=== PATIENT | female | born 1955 | race Caucasian/White ===

== ENCOUNTER 2016-11-01 02:09 | Emergency (ER) | payer OTHER ==
[~2016-11-01] VITALS: Ht 165.1 cm; Wt 80.9 kg
[2016-11-01 02:12] VITALS: BP 130/89; RESP 18; O2SAT 98
--- NOTE | 2016-11-01 02:34 | ED.REPORT ---
HPI-Ear Pain/Problem/FB Date of Service Nov 01, 2016 ED Provider: Arsenio Jim DO Patient is a 60 year old female with diabetes mellitus who presents to the ED with left sided ear pain that began this evening. Her pain is so severe that she was unable to sleep tonight. The patient states that she was recently sick 2 days ago, with vomiting and diarrhea. Her symptoms resolved 2 days ago. She also reports a persistent cough and nasal drip. Patient denies a fever. Nursing Notes Stated Complaint: LEFT EAR PAIN, POSSIBLE FLU Chief Complaint: ENT & Mouth Nursing Notes Reviewed: Yes Allergies: Coded Allergies: No Known Allergies (Unverified , 11/01/16) General Time Seen by MD: 02:33 Chief Complaint Ear problem left Hx Obtained From: Patient Arrived By: Walk-in Onset Occurred: 1 - 4 hours ago Symptom Duration: Since onset Quality: Painful Severity: Current: Moderate Severity: Maximum: Severe Recent Healthcare: No recent doctor visit, No recent hospitalization Similar Sx Previous: No Past Medical History Past Medical History Reports: Diabetes mellitus Reports: Migraines Past Surgical History none reported Smoking History Unknown if Ever Smoker Social History Other Social History: Good social support, , Local resident Ambulatory Status Independent Review of Systems Constitutional: Denies: Chills, Fever Ears / Nose / Throat: Reports: Earache left, Nasal congestion Complete sys rev & neg: except as marked. Additional Review of Systems Respiratory: Reports: Non-productive cough, Denies: Shortness of breath GI: Denies: Diarrhea (resolved), Vomiting (resolved) Physical Exam Initial Vital Signs Vital Signs (First) Date Time Temp Pulse Resp B/P Pulse Ox O2 Delivery O2 Flow Rate FiO2 11/01/16 02:12 36.3 86 18 130/89 98 Room Air Initial VS: Reviewed Head / Eyes: Atraumatic, Normocephalic, PERRL Neck: Supple, Full range of motion Extremities: Vascular intact, Neuro intact Skin: Warm, Dry, No cyanosis Neurologic: Alert, Oriented, Nonfocal Psychiatric: Mood/affect normal, Behavior normal, Normal thought content General/Constitutional: Awake, Alert, No acute distress ENT: Airway patent Left Ear / Mastoid: Positive: Fluid behind TM purulent (and green), Tympanic membrane bulging, Tympanic membrane red Respiratory / Chest: No respiratory distress, No stridor Cardiovascular: Heart rate NL, Cap refill not delayed Re-Eval/Medical Decision Source of Hx: Old records Re-Evaluation/Progress : Time of Eval: 02:45 Patient Status: Condition improved Re-Evaluation/Progress Note: Patient's ear infection will be treated with antibiotics. Patient understands and agrees with the plan to be discharged home. Discharge instructions and follow-up discussed. All questions were addressed. Return to the ED warnings given. Counseled Regarding: Diagnosis, Need for follow-up, When/why to return to ED Discharge & Departure Primary Impression: Otitis media Otitis media type: suppurative Laterality: left Chronicity: acute Recurrence: not specified Spontaneous tympanic membrane rupture: without spontaneous rupture Qualified Code: H66.002 - Acute suppurative otitis media without spontaneous rupture of ear drum, left ear Disposition: Home Discharge Condition All VS Reviewed: Yes Condition: Stable Patient Instructions: Otitis Media (ED) Additional Instructions: You have an ear infection of your left ear. Take Amoxicillin three times daily for the next 10 days. Take 1-2 Percocet every 4-6 hours as needed for pain. Do not drink alcohol, drive, or take acetaminophen while on this medication. Stop using Q-tips to clean your ears! You can simply wash them out with water. Use Flonase daily for your chronic nasal drip. Follow-up with your primary care physician next week. Return to the Emergency department if you develop any new or concerning symptoms. Zenon Attestation Portions of this note were transcribed by Nelda Topete. I, Dr. Jim personally performed the history, physical exam and medical decision-making; I reviewed and confirmed the accuracy of the information in the transcribed note. Signed by: Zenon Garcia, 11/01/2016 [id number] Arsenio Jim DO Nov 01, 2016 02:33 Nelda Topete Nov 01, 2016 02:46
[2016-11-01] MEDS ORDERED: oxyCODONE-Acetamin 5-325 mg Tablet PO ONE (03:00)
[2016-11-01 03:23] VITALS: BP 138/92; PULSE 80; RESP 16; O2SAT 95
== END 2016-11-01 03:47 | disposition home or self-care (01) ==
LOC: SED 02:09
DX: H66.002 Acute suppurative otitis media without spontaneous rupture of ear drum, left ear (principal); R05 Cough; R09.82 Postnasal drip; E11.9 Type 2 diabetes mellitus without complications